=== PATIENT | female | born 1990 | race Caucasian/White ===

== ENCOUNTER 2021-11-07 16:46 | Emergency (ER) | payer OTHER ==
[2021-11-07 19:29] LABS: #Basophils 0.1 10x3/uL (0.0-0.2); #Monocytes 0.9 10x3/uL (0.0-1.1); #Neutrophils 8.4 10x3/uL (1.5-8.4); %Basophils 0.4 % (0.0-2.0); %Lymphocytes 23.7 % (18.0-47.0); %Monocytes 6.5 % (0.0-10.0); %Neutrophils 62.2 % (40.0-75.0); Hemoglobin 13.7 g/dL (12.0-15.5); Mean Corpuscular HGB CONC 34.9 g/dL (32.0-36.0); Mean Corpuscular Hemoglobin 30.7 pg (27.0-33.0); Mean Corpuscular Volume 88.1 fl (81.6-98.3); Mean Platelet Volume 9.6 fl (7.4-10.4); Platelet Count 231 10x3/uL (150-450); RBC Distribution Width 13.3 % (11.5-14.5); Red Blood Cell (RBC) Count 4.46 10x6/uL (3.90-5.03); White Blood Cell (WBC) Count 13.5 10x3/uL (3.5-10.5)
[2021-11-07 20:54] LABS: Bilirubin Neg (Negative); Blood, Urine 25 (Negative); Clarity Clear (Clear); Glucose, Urine (Dipstick) Normal (Negative); Ketone, Urine Negative (Negative); Leukocyte Negative (Negative); Nitrite Negative (Negative); Protein, Urine (Dipstick) Negative (Neg-Trace); Urobilinogen Normal mg/dL (Less than 2)
[2021-11-07 21:02] LABS: Bacteria/HPF None Seen HPF (None Seen); Squamous Epithelial 0-3 HPF (0-3); WBC/HPF 0-3 HPF (0-3)
== END 2021-11-07 21:05 | disposition home or self-care (01) ==
LOC: CSHERS 16:46
DX: O20.9 Hemorrhage in early pregnancy, unspecified (principal); Z87.891 Personal history of nicotine dependence; Z3A.12 12 weeks gestation of pregnancy
CPT/HCPCS: 36415; 81003; 81015; 84702; 85025; 86900; 86901

== ENCOUNTER 2022-04-05 20:22 | Day surgery (SDC) | payer OTHER ==
[2022-04-05 20:50] VITALS: BMI 32.3
[2022-04-05] MEDS ORDERED: hydrALAZINE 20 MG/ML VIAL SLOW IVP PRN (21:19)
[2022-04-05 21:28] LABS: Bilirubin Neg (Negative); Blood, Urine Negative (Negative); Clarity Clear (Clear); Glucose, Urine (Dipstick) Normal (Negative); Ketone, Urine Negative (Negative); Leukocyte Negative (Negative); Nitrite Negative (Negative); Protein, Urine (Dipstick) Negative (Neg-Trace); Urobilinogen Normal mg/dL (Less than 2)
[2022-04-05 21:29] LABS: Urine Culture Reflex No No
[2022-04-05 21:38] LABS: Bacteria/HPF None Seen HPF (None Seen); RBC/HPF 0-3 HPF (0-3); Squamous Epithelial 0-3 HPF (0-3); WBC/HPF 0-3 HPF (0-3)
[2022-04-05] MEDS ORDERED: Lactated Ringer's 1,000 ML IV SCH (22:30)
== END 2022-04-06 00:15 | disposition home or self-care (01) ==
LOC: CSHLD/OP 20:22
PROVIDERS: ATTEND Obstetrics & Gynecology
DX: O47.03 False labor before 37 completed weeks of gestation, third trimester (principal); O99.891 Other specified diseases and conditions complicating pregnancy; N89.8 Other specified noninflammatory disorders of vagina; O09.213 Supervision of pregnancy with history of pre-term labor, third trimester; O34.211 Maternal care for low transverse scar from previous cesarean delivery; Z3A.33 33 weeks gestation of pregnancy; Z87.891 Personal history of nicotine dependence
CPT/HCPCS: 81001; 87480; 87510; 87660

== ENCOUNTER 2022-05-04 22:52 | Day surgery (SDC) | payer OTHER ==
[2022-05-04 23:16] VITALS: BMI 32.5
[2022-05-05] MEDS ORDERED: hydrALAZINE 20 MG/ML VIAL SLOW IVP PRN (00:05)
== END 2022-05-05 00:10 | disposition home or self-care (01) ==
LOC: CSHLD/OP 22:52
PROVIDERS: ATTEND Obstetrics & Gynecology
DX: O26.853 Spotting complicating pregnancy, third trimester (principal); Z79.82 Long term (current) use of aspirin; Z79.899 Other long term (current) drug therapy; Z3A.37 37 weeks gestation of pregnancy
CPT/HCPCS: 99282

== ENCOUNTER 2022-05-16 15:30 | Inpatient (IN) | payer OTHER ==
[2022-05-16 16:29] VITALS: BMI 32.3
[2022-05-16 16:35] LABS: Fetal Membranes Rupture RUPTURE DETECTED (No Rupture)
[2022-05-16] MEDS ORDERED: Acetaminophen 500 MG TAB PO PRN (19:16)
[2022-05-16] MEDS ORDERED: Promethazine HCl 25 MG/ML VIAL IM PRN (19:16)
[2022-05-16] MEDS ORDERED: hydrALAZINE 20 MG/ML VIAL SLOW IVP PRN (19:16)
[2022-05-16] MEDS ORDERED: Zolpidem Tartrate 5 MG TAB PO PRN (19:16)
[2022-05-16] MEDS ORDERED: HYDROcodone/Acetaminophen 5/325 mg Tablet PO PRN (19:16)
[2022-05-16] MEDS ORDERED: Ondansetron PF 4 MG/2 ML Vial IVP PRN (19:16)
[2022-05-16] MEDS ORDERED: Ibuprofen 800 MG TAB PO PRN (19:16)
[2022-05-16] MEDS ORDERED: Lidocaine 1% (PF) 30 ML VIAL SC PRN (19:16)
[2022-05-16] MEDS ORDERED: NS w/ Oxytocin 30 units 500 ML ONE (19:23)
[2022-05-16] MEDS ORDERED: Lactated Ringer's 1,000 ML IV SCH ×2 (19:30)
[2022-05-16] MEDS ORDERED: NS w/ Oxytocin 30 units 500 ML IV SCH ×2 (19:30)
[2022-05-16 19:51] LABS: Hemoglobin 13.6 g/dL (12.0-15.5); Mean Corpuscular HGB CONC 34.5 g/dL (32.0-36.0); Mean Corpuscular Hemoglobin 30.6 pg (27.0-33.0); Mean Corpuscular Volume 88.7 fl (81.6-98.3); Mean Platelet Volume 10.4 fl (7.4-10.4); Platelet Count 216 10x3/uL (150-450); RBC Distribution Width 14.1 % (11.5-14.5); Red Blood Cell (RBC) Count 4.44 10x6/uL (3.90-5.03); White Blood Cell (WBC) Count 12.7 10x3/uL (3.5-10.5)
[2022-05-16 20:01] LABS: Hep B Surf Ag Non-Reactive S/CO (NonReactive); Syphilis Antibody Nonreactive (Nonreactive); Syphilis Antibody Index 0.18 S/CO (<1.00 Non-Reactive)
[2022-05-16 20:19] LABS: HBSAg Index 0.21 S/CO (0-0.99)
[2022-05-16 20:44] LABS: SARS-CoV-2 NAA Rapid Test Not Detected (NotDetected)
[2022-05-16] MEDS ORDERED: Fentanyl 2 mcg/Bup 0.1% Cadd 100 ML ONE (21:40)
[2022-05-17] MEDS ORDERED: Guaifenesin DM 100-10/5 ML UDCUP PO PRN (00:21)
[2022-05-17] MEDS ORDERED: Fentanyl 2 mcg/Bup 0.1% Cadd 100 ML ONE (05:06)
[2022-05-17] MEDS ORDERED: Bisacodyl 10 MG SUPP PR PRN (13:46)
[2022-05-17] MEDS ORDERED: Lanolin Ointment 7 GM TUBE TOP PRN (13:46)
[2022-05-17] MEDS ORDERED: hydrALAZINE 20 MG/ML VIAL SLOW IVP PRN (13:46)
[2022-05-17] MEDS ORDERED: Milk Of Magnesia 30 ML UDCUP PO PRN (13:46)
[2022-05-17] MEDS: Ibuprofen 800 MG TAB PO SCH ×2 (16:57→21:22)
[2022-05-17] MEDS: Ferrous Sulfate 325 MG TAB PO SCH (17:10)
[2022-05-17] MEDS: Docusate 100 MG CAP PO SCH (21:22)
[2022-05-18 04:28] LABS: #Basophils 0.1 10x3/uL (0.0-0.2); #Eosinphils 0.6 10x3/uL (0.0-0.5); #Monocytes 1.1 10x3/uL (0.0-1.1); #Neutrophils 8.3 10x3/uL (1.5-8.4); %Basophils 0.5 % (0.0-2.0); %Eosinophils 4.6 % (0.0-6.0); %Lymphocytes 19.8 % (18.0-47.0); %Monocytes 8.7 % (0.0-10.0); %Neutrophils 65.8 % (40.0-75.0); Hemoglobin 11.5 g/dL (12.0-15.5); Mean Corpuscular HGB CONC 34.6 g/dL (32.0-36.0); Mean Corpuscular Hemoglobin 30.4 pg (27.0-33.0); Mean Corpuscular Volume 87.8 fl (81.6-98.3); Mean Platelet Volume 10.3 fl (7.4-10.4); Platelet Count 151 10x3/uL (150-450); RBC Distribution Width 14.1 % (11.5-14.5); Red Blood Cell (RBC) Count 3.78 10x6/uL (3.90-5.03); White Blood Cell (WBC) Count 12.6 10x3/uL (3.5-10.5)
[2022-05-18] MEDS: Ibuprofen 800 MG TAB PO SCH (05:05)
[2022-05-18] MEDS: Ferrous Sulfate 325 MG TAB PO SCH (07:40)
[2022-05-18] MEDS ORDERED: Prenatal Vitamin 1 TAB PO SCH (09:00)
[2022-05-18] MEDS: Docusate 100 MG CAP PO SCH (09:15)
[2022-05-18 12:03] VITALS: BP 120/70; TEMP 98.2
[2022-05-18] MEDS ORDERED: Boostrix 0.5 ML (Tdap) VIAL IM ONE (13:46)
== END 2022-05-18 14:50 | disposition home or self-care (01) | DRG 807 ==
LOC: CSHLD/OP 15:30 → CSHLD 21:06 → CSHPED 05-17 14:35
PROVIDERS: ADMIT Student in an Organized Health Care Education/Training Program; ATTEND Student in an Organized Health Care Education/Training Program
PROC: 10E0XZZ Delivery of Products of Conception, External Approach (ICD-10-PCS; principal; 2022-05-17)
DX: O42.02 Full-term premature rupture of membranes, onset of labor within 24 hours of rupture (principal); Z37.0 Single live birth; O34.219 Maternal care for unspecified type scar from previous cesarean delivery; Z91.018 Allergy to other foods; Z3A.39 39 weeks gestation of pregnancy; Z20.822 Contact with and (suspected) exposure to COVID-19
CPT/HCPCS: 36415; 84112; 85025; 85027; 86780; 86850; 86900; 86901; 87340; J2590; U0002

== ENCOUNTER 2022-06-02 18:23 | Inpatient (IN) | payer OTHER ==
[~2022-06-02 18:23] MED LIST: Iopamidol 370 76% 100 ML VIAL ONE; Rocuronium Bromide 10 MG/ML (10ML VIAL) ONE
[2022-06-02 18:54] LABS: #Basophils 0.1 10x3/uL (0.0-0.2); #Eosinphils 1.4 10x3/uL (0.0-0.5); #Monocytes 0.7 10x3/uL (0.0-1.1); #Neutrophils 12.1 10x3/uL (1.5-8.4); %Basophils 0.5 % (0.0-2.0); %Eosinophils 8.8 % (0.0-6.0); %Lymphocytes 9.2 % (18.0-47.0); %Monocytes 4.6 % (0.0-10.0); %Neutrophils 76.6 % (40.0-75.0); Hemoglobin 15.5 g/dL (12.0-15.5); Mean Corpuscular HGB CONC 34.5 g/dL (32.0-36.0); Mean Corpuscular Hemoglobin 30.3 pg (27.0-33.0); Mean Corpuscular Volume 87.7 fl (81.6-98.3); Mean Platelet Volume 9.6 fl (7.4-10.4); Platelet Count 284 10x3/uL (150-450); RBC Distribution Width 13.2 % (11.5-14.5); Red Blood Cell (RBC) Count 5.12 10x6/uL (3.90-5.03); White Blood Cell (WBC) Count 15.8 10x3/uL (3.5-10.5)
[2022-06-02] MEDS ORDERED: Dexamethasone 10 MG/ML VIAL ONE (18:58)
[2022-06-02] MEDS ORDERED: Magnesium 2 GM/50 ML BAG (IN WATER) ONE (18:59)
[2022-06-02] MEDS ORDERED: cefTRIAXone\\ROCEPHIN 2 GM VIAL ONE (18:59)
[2022-06-02] MEDS ORDERED: Azithromycin 500 MG VIAL ONE (18:59)
[2022-06-02 19:07] LABS: ALT (SGPT) 24 U/L (8-55); AST (SGOT) 19 U/L (5-34); Albumin 4.4 g/dL (3.5-5.0); Alkaline Phosphatase 80 U/L (40-110); Anion Gap 16 mmol/L (10-20); BUN (Urea Nitrogen) 13 mg/dL (7.0-18.7); Bilirubin, Total 0.3 mg/dL (0.2-1.2); CK (CPK) 45 U/L (29-168); Calc. Creatinine Clearance 0 mL/min (70-130); Calcium 9.8 mg/dL (7.8-10.44); Carbon Dioxide 21 mmol/L (22-29); Chloride 108 mmol/L (98-107); Estimated GFR 111; Globulin 3.3 g/dL (2.4-3.5); Glucose 101 mg/dL (70-105); Lipase 10 U/L (8-78); Potassium 3.8 mmol/L (3.5-5.1); Protein, Total 7.7 g/dL (6.0-8.3); Sodium 141 mmol/L (136-145)
[2022-06-02] MEDS ORDERED: Albuterol Sulfate 2.5 mg/3 ml Neb ONE (19:07)
[2022-06-02 19:58] LABS: SARS-CoV-2 NAA Rapid Test Not Detected (NotDetected)
[2022-06-02] MEDS ORDERED: Acetaminophen 325 MG TAB PO PRN (21:39)
[2022-06-02] MEDS ORDERED: Ondansetron PF 4 MG/2 ML Vial IVP PRN (21:39)
[2022-06-02 21:45] VITALS: BMI 30.8
[2022-06-02] MEDS ORDERED: Furosemide 20 MG/2 ML VIAL SLOW IVP SCH (21:45)
[2022-06-02] MEDS ORDERED: methylPREDNISolone Sod Succ/PF 40 MG in Sodium Chloride 0.9% 250 ML 250 ML IVPB SCH (21:45)
[2022-06-02] MEDS ORDERED: Potassium Chloride 20 MEQ in Lactated Ringer's 1,000 ML IV SCH ×2 (21:45→22:14)
[2022-06-02 22:14] LABS: Magnesium 2.2 mg/dL (1.6-2.6)
[2022-06-02] MEDS ORDERED: Lorazepam 2 MG/ML VIAL SLOW IVP STA (23:42)
[2022-06-03] MEDS ORDERED: Lorazepam 2 MG/ML VIAL SLOW IVP STA (00:15)
[2022-06-03] MEDS: methylPREDNISolone Sod Succ 40 MG VIAL IVP SCH ×2 (01:00→14:53)
[2022-06-03] MEDS: Dexmedetomidine In 0.9 % NaCl 100 ML IVPB SCH ×2 (01:52→08:57)
[2022-06-03 04:22] LABS: Anion Gap 17 mmol/L (10-20); BUN (Urea Nitrogen) 8 mg/dL (7.0-18.7); Calc. Creatinine Clearance 154 mL/min (70-130); Calcium 9.5 mg/dL (7.8-10.44); Carbon Dioxide 24 mmol/L (22-29); Chloride 105 mmol/L (98-107); Estimated GFR 119; Glucose 153 mg/dL (70-105); Potassium 4.5 mmol/L (3.5-5.1); Sodium 141 mmol/L (136-145)
[2022-06-03 04:31] LABS: Hemoglobin 14.9 g/dL (12.0-15.5); Mean Corpuscular HGB CONC 33.3 g/dL (32.0-36.0); Mean Corpuscular Hemoglobin 29.7 pg (27.0-33.0); Mean Platelet Volume 9.6 fl (7.4-10.4); Platelet Count 260 10x3/uL (150-450); RBC Distribution Width 13.2 % (11.5-14.5); Red Blood Cell (RBC) Count 5.02 10x6/uL (3.90-5.03); White Blood Cell (WBC) Count 18.3 10x3/uL (3.5-10.5)
[2022-06-03 05:31] LABS: MDiff Complete? YES
[2022-06-03 07:04] LABS: Band 1 % (5-11); Lymphocytes 2 % (21-51); Neutrophil 96 % (42-75); Reactive Lymphocytes 1 % (0-10)
[2022-06-03 07:05] LABS: Diff Comment (RBC Morph SCRN) NORMAL; Platelet Morphology Comment Appears Adequate
[2022-06-03] MEDS ORDERED: Enoxaparin Sodium 40 MG/0.4 ML SYRINGE SC SCH (09:00)
[2022-06-03] MEDS ORDERED: Pantoprazole 40 MG VIAL IVP SCH (09:00)
[2022-06-03] MEDS ORDERED: Lorazepam 20 MG/10 ML MDV (1ml Chg) IVP PRN (09:00)
[2022-06-03] MEDS ORDERED: Lorazepam 20 MG/10 ML MDV (1ml Chg) IVP SCH (09:00)
[2022-06-03] MEDS ORDERED: guaiFENesin ER 600 MG TAB PO SCH (09:00)
[2022-06-03] MEDS ORDERED: Cholecalciferol 1,000 UNITS (25 MCG) TAB PO SCH (09:00)
[2022-06-03] MEDS ORDERED: Calcium Carbonate 600 MG TAB PO SCH (09:00)
[2022-06-03] MEDS ORDERED: Prenatal Vitamin 1 TAB PO SCH (09:00)
[2022-06-03] MEDS ORDERED: Sodium Bicarb 50 MEQ/50 ML VIAL IVP SCH ×2 (10:00)
[2022-06-03] MEDS ORDERED: Vecuronium 10 MG VIAL IV SCH (10:00)
[2022-06-03] MEDS ORDERED: Sodium Bicarb 50 MEQ/50 ML VIAL ONE ×2 (10:05→10:12)
[2022-06-03] MEDS ORDERED: Ventilator Sedation Protocol 1 EACH FS SCH ×2 (10:15)
[2022-06-03] MEDS ORDERED: Piperacillin/Tazobactam 3.375 GM in Sodium Chloride 0.9% 100 ML IVPB SCH ×3 (10:15→16:00)
[2022-06-03] MEDS ORDERED: Ventilator Sedation Protocol FS PRN (10:15)
[2022-06-03] MEDS ORDERED: Propofol 1,000 MG/100 ML VIAL IV ONE (10:20)
[2022-06-03] MEDS: Propofol 1,000 MG/100 ML VIAL IV PRN ×2 (10:25→16:32)
[2022-06-03] MEDS ORDERED: Lorazepam 2 MG/ML VIAL SLOW IVP PRN (10:30)
[2022-06-03] MEDS ORDERED: DISCONTINUE PREVIOUS NARCOTIC PAIN MEDICATIONS AND BENZODIAZEPINES FS SCH (10:30)
[2022-06-03] MEDS ORDERED: fentaNYL Citrate-0.9 % NaCl/PF 100 ML IVPB SCH (10:30)
[2022-06-03] MEDS ORDERED: Morphine 2 MG/ML VIAL SLOW IVP PRN (10:30)
[2022-06-03] MEDS ORDERED: Propofol BOLUS 1,000 MG/100 ML VIAL IV PRN (10:30)
[2022-06-03] MEDS ORDERED: Fentanyl BOLUS 250 ML IVPB PRN (10:30)
[2022-06-03] MEDS ORDERED: Vecuronium 10 MG VIAL ONE (10:37)
[2022-06-03] MEDS ORDERED: NOREPINEPHRINE 8 MG/250 ML-D5W 250 ML IVPB SCH (10:45)
[2022-06-03] MEDS ORDERED: Vancomycin 1.5 GRAM/300 ML BAG 1.5 GM in Premix Bag 1 BAG IVPB SCH (11:00)
[2022-06-03] MEDS: Vecuronium Bromide 50 MG in Sodium Chloride 0.9% 250 ML 250 ML IV SCH ×2 (12:31→20:00)
[2022-06-03] MEDS: Vasopressin 20 UNIT, Admixture Fee 1 EACH in Sodium Chloride 0.9% 50 ML IV SCH ×2 (14:10→19:59)
[2022-06-03] MEDS ORDERED: Albumin 25% 200 ML ONE (15:21)
[2022-06-03] MEDS ORDERED: Sodium Bicarb 50 MEQ/50 ML VIAL IV SCH (15:45)
[2022-06-03] MEDS ORDERED: Albumin 25% 25 GM/100 ML BOT IVPB SCH (16:00)
[2022-06-03 17:12] LABS: #Eosinphils 0.1 10x3/uL (0.0-0.5); #Monocytes 1.5 10x3/uL (0.0-1.1); #Neutrophils 14.7 10x3/uL (1.5-8.4); %Basophils 0.2 % (0.0-2.0); %Eosinophils 0.3 % (0.0-6.0); %Lymphocytes 5.9 % (18.0-47.0); %Monocytes 8.3 % (0.0-10.0); %Neutrophils 84.7 % (40.0-75.0); Mean Corpuscular HGB CONC 32.7 g/dL (32.0-36.0); Mean Corpuscular Hemoglobin 30.2 pg (27.0-33.0); Mean Corpuscular Volume 92.3 fl (81.6-98.3); Mean Platelet Volume 9.9 fl (7.4-10.4); Platelet Count 373 10x3/uL (150-450); RBC Distribution Width 13.4 % (11.5-14.5); White Blood Cell (WBC) Count 17.4 10x3/uL (3.5-10.5)
[2022-06-03 17:27] LABS: ALT (SGPT) 18 U/L (8-55); AST (SGOT) 17 U/L (5-34); Albumin 4.6 g/dL (3.5-5.0); Alkaline Phosphatase 63 U/L (40-110); Anion Gap 18 mmol/L (10-20); BUN (Urea Nitrogen) 15 mg/dL (7.0-18.7); Bilirubin, Total 0.7 mg/dL (0.2-1.2); Calc. Creatinine Clearance 111 mL/min (70-130); Calcium 8.9 mg/dL (7.8-10.44); Carbon Dioxide 32 mmol/L (22-29); Chloride 97 mmol/L (98-107); Estimated GFR 80; Globulin 3.1 g/dL (2.4-3.5); Glucose 163 mg/dL (70-105); Potassium 4.1 mmol/L (3.5-5.1); Protein, Total 7.7 g/dL (6.0-8.3); Sodium 143 mmol/L (136-145)
[2022-06-03 18:32] LABS: Legionella Urinary Ag Negative (Negative); Strep pneumo Urine Ag NEGATIVE (NEGATIVE)
[2022-06-03] MEDS ORDERED: cefTRIAXone\\ROCEPHIN 1 GM in Sodium Chloride 0.9% 100 ML IVPB SCH (20:00)
[2022-06-03 20:31] VITALS: BP 89/60
[2022-06-03] MEDS ORDERED: Famotidine/PF 20 mg/2ml Vial SLOW IVP SCH (21:00)
[2022-06-03] MEDS ORDERED: Azithromycin 500 MG in Sodium Chloride 0.9% 250 ML 250 ML IVPB SCH (21:00)
[2022-06-04] MEDS ORDERED: Vancomycin HCl 1 GM in Sodium Chloride 0.9% 250 ML 250 ML IVPB SCH (01:00)
[2022-06-04 11:55] LABS: Actual Bicarbonate (HCO3a) 27.2 mEq/L (22-28); Base Excess (BEa) -1.2 mEq/L (-2.0 to +3.0); CO2 Tension 60.7 mmHg (35.0-45.0); Carboxyhemoglobin (COHb) 0.2 gm% (0.0-3.0); Hemoglobin (Hb) 15.6 g/dL (12.0-16.0); O2 Tension (PaO2), arterial 103.2 mmHg (80.0-100.0); pH, Arterial 7.27 (7.35-7.45)
[2022-06-04 11:56] LABS: ALV-art Gradient 462.625 mmHg (0-20); Potassium - ABG Lab 4.7 mmol/L (3.70-5.30)
[2022-06-04 11:58] LABS: CO2 Tension 60.5 mmHg (35.0-45.0); pH, Arterial 7.29 (7.35-7.45)
[2022-06-04 11:59] LABS: Actual Bicarbonate (HCO3a) 28.6 mEq/L (22-28); Base Excess (BEa) 0.5 mEq/L (-2.0 to +3.0); Calcium, Ionized (arterial) 1.14 mmol/L (1.12-1.30); Carboxyhemoglobin (COHb) 0.3 gm% (0.0-3.0); O2 Tension (PaO2), arterial 468.1 mmHg (80.0-100.0); Potassium - ABG Lab 4.7 mmol/L (3.70-5.30)
[2022-06-04 12:00] LABS: ALV-art Gradient 169.275 mmHg (0-20); Puncture Site RRA
[2022-06-04 12:02] LABS: CO2 Tension 79.6 mmHg (35.0-45.0); pH, Arterial 7.21 (7.35-7.45)
[2022-06-04 12:03] LABS: Actual Bicarbonate (HCO3a) 31.3 mEq/L (22-28); Base Excess (BEa) 0.7 mEq/L (-2.0 to +3.0); Carboxyhemoglobin (COHb) 0.3 gm% (0.0-3.0); Hemoglobin (Hb) 15.5 g/dL (12.0-16.0); Potassium - ABG Lab 4.9 mmol/L (3.70-5.30)
[2022-06-04 12:04] LABS: Calcium, Ionized (arterial) 1.22 mmol/L (1.12-1.30); Puncture Site RRA
[2022-06-05 13:14] LABS: Puncture Site LRA
[2022-06-05 13:47] LABS: Actual Bicarbonate (HCO3a) 34.3 mEq/L (22-28); Base Excess (BEa) 7.1 mEq/L (-2.0 to +3.0); CO2 Tension 60.2 mmHg (35.0-45.0); Calcium, Ionized (arterial) 1.07 mmol/L (1.12-1.30); Carboxyhemoglobin (COHb) 0.3 gm% (0.0-3.0); Hemoglobin (Hb) 13.9 g/dL (12.0-16.0); O2 Tension (PaO2), arterial 110.1 mmHg (80.0-100.0); Potassium - ABG Lab 3.9 mmol/L (3.70-5.30); Puncture Site RRA; pH, Arterial 7.37 (7.35-7.45)
[2022-06-06 23:36] LABS: Mycoplasma pneumoniae IgG AB 569 U/mL (0-99); Mycoplasma pneumoniae IgM AB Less than 770 U/mL (0-769)
== END 2022-06-02 21:30 | disposition short-term general hospital (02) | DRG 776 ==
LOC: CSHERS 18:23 → CSHICU 21:13
PROVIDERS: ADMIT Family Medicine; ATTEND Student in an Organized Health Care Education/Training Program
PROC: 5A09357 Assistance with Respiratory Ventilation, Less than 24 Consecutive Hours, Continuous Positive Airway Pressure (ICD-10-PCS; principal; 2022-06-02)
PROC: 3E033XZ Introduction of Vasopressor into Peripheral Vein, Percutaneous Approach (ICD-10-PCS; 2022-06-02)
PROC: 5A0935A Assistance with Respiratory Ventilation, Less than 24 Consecutive Hours, High Flow/Velocity Cannula (ICD-10-PCS; 2022-06-02)
PROC: 5A1935Z Respiratory Ventilation, Less than 24 Consecutive Hours (ICD-10-PCS; 2022-06-02)
PROC: 0BH17EZ Insertion of Endotracheal Airway into Trachea, Via Natural or Artificial Opening (ICD-10-PCS; 2022-06-02)
DX: O99.53 Diseases of the respiratory system complicating the puerperium (principal); J96.01 Acute respiratory failure with hypoxia; J18.9 Pneumonia, unspecified organism; J96.02 Acute respiratory failure with hypercapnia; J45.902 Unspecified asthma with status asthmaticus; Z20.822 Contact with and (suspected) exposure to COVID-19; Z91.018 Allergy to other foods; Z87.891 Personal history of nicotine dependence; Z90.89 Acquired absence of other organs
CPT/HCPCS: 36415; 36600; 71045; 71275; 80048; 80053; 82550; 82805; 83605; 83690; 83735; 84484; 85025; 87040; 87070; 87081; 87205; 87430; 87449; 87633; 87798; 87899; 89220; 93005; 93306; 94002; 94640; 94660; 94760; C9113; J0456; J0696; J1100; J1650; J1940; J2060; J2543; J2704; J2920; J3370; J3475; J3480; J3490; J7050; J7120; J7611; J7620; P9047; Q9967; U0002